=== PATIENT | female | born 1980 | race Caucasian/White ===

== ENCOUNTER → 2016-12-19 | Outpatient (CLI) | payer OTHER | LOC: FIMAGING 14:38 | PROVIDERS: ATTEND Obstetrics & Gynecology | DX: O09.521 Supervision of elderly multigravida, first trimester (principal); N93.9 Abnormal uterine and vaginal bleeding, unspecified; Z3A.12 12 weeks gestation of pregnancy ==

== ENCOUNTER → 2017-01-09 | Outpatient (CLI) | payer OTHER | LOC: FIMAGING 09:47 | PROVIDERS: ATTEND Obstetrics & Gynecology | DX: O09.522 Supervision of elderly multigravida, second trimester (principal); O20.8 Other hemorrhage in early pregnancy; Z3A.15 15 weeks gestation of pregnancy ==

== ENCOUNTER → 2017-02-06 | Outpatient (CLI) | payer OTHER | LOC: FIMAGING 12:34 | PROVIDERS: ATTEND Obstetrics & Gynecology | DX: O36.8920 Maternal care for other specified fetal problems, second trimester, not applicable or unspecified (principal); Z3A.19 19 weeks gestation of pregnancy ==

== ENCOUNTER → 2017-05-02 | Outpatient (CLI) | payer OTHER | LOC: FIMAGING 09:41 | PROVIDERS: ATTEND Obstetrics & Gynecology | DX: O09.523 Supervision of elderly multigravida, third trimester (principal); Z3A.31 31 weeks gestation of pregnancy ==

== ENCOUNTER 2017-06-21 06:00 | Inpatient (IN) | payer OTHER ==
[2017-06-21] MEDS ORDERED: LR 1,000 ML IV PRN (06:22)
[2017-06-21] MEDS ORDERED: TERBUTALINE SULFATE 1 MG/ML VIAL IV PRN (06:22)
[2017-06-21] MEDS ORDERED: EPSOM SALT 454 GM TP PRN (06:22)
[2017-06-21] MEDS ORDERED: OXYTOCIN/RINGERS LACTATE 1,000 ML IV PRN (06:22)
[2017-06-21] MEDS ORDERED: OLIVE OIL 118 ML BTL MISC PRN (06:22)
--- NOTE | 2017-06-21 06:24 | OBPROG ---
OBG Labor Progress Note Assessment/Plan: Assessment: Plan: - Physical Exam General Appearance: WD/WN, alert, no apparent distress Respiratory: chest non-tender, lungs clear, normal breath sounds Cardiac/Chest: regular rate, rhythm Abdomen: normal bowel sounds Extremities: normal range of motion, Eugene's sign (negative bilaterally) DTR- Lower Extremities: Knee (R): 1+, Knee (L): 1+ (no clonus) Skin: normal color, warm/dry Neuro/Psych: no motor/sensory deficits, alert, normal mood/affect, oriented x 3 ICD10 Worksheet Patient Problems: Problems Problem Status Onset Acute Normal spontaneous vaginal delivery Acute
--- NOTE | 2017-06-21 06:26 | OBPROG ---
OBG Labor Progress Note Assessment/Plan: Assessment:cat1 fhr denies pain exam /-2 cephalic soft posterior Plan: discussed poc pitocin per protocol and arom patient and family ok with poc, light breakfast if desires, resting or ambulating changing positions until contractions 06/21/17 06:24 - SVE Dilation (cm): 3 Effacement (%): 50 Station: -2 ICD10 Worksheet Patient Problems: Problems Problem Status Onset Normal spontaneous vaginal delivery Acute Acute
[2017-06-21] MEDS ORDERED: OXYTOCIN/RINGERS LACTATE 500 ML IV SCH (06:30)
[2017-06-21] MEDS ORDERED: LIDOCAINE 1% 300 MG/30 ML SDV ONE (06:35)
[2017-06-21] MEDS ORDERED: AMMONIA AROMATIC 1 EACH AMP IH ONE (06:36)
[2017-06-21] MEDS ORDERED: MISOPROSTOL 200 MCG TAB ONE (06:36)
[2017-06-21] MEDS ORDERED: TERBUTALINE SULFATE 1 MG/ML VIAL ONE (06:36)
[2017-06-21] MEDS ORDERED: OXYTOCIN 10 UNIT/ML VIAL ONE (06:36)
[2017-06-21] MEDS ORDERED: OLIVE OIL 118 ML BTL ONE (06:36)
[2017-06-21 06:37] LABS: % IMMATURE GRANULYOCYTES 0.5 % (0.0-1.1); ABSOLUTE IMMATURE GRANULOCYTES 0.04 10^3/uL (0.00-0.10); ADD DIFF? NO; ADD MORPH? NO; ADD SCAN? NO; ATYPICAL LYMPHOCYTE FLAG 0 (0-99); FRAGMENT RBC FLAG 0 (0-99); HEMATOCRIT 37.4 % (38.0-47.0); HEMOGLOBIN 12.7 g/dL (12.6-16.3); LEFT SHIFT FLG 0 (0-99); LIPEMIA HEMOLYSIS FLAG 90 (0-99); MEAN CELL HEMOGLOBIN 31.5 pg (27.9-34.1); MEAN CELL VOLUME 92.8 fL (81.5-99.8); MEAN PLATELET VOLUME 11.6 fL (8.7-11.7); PLATELET CLUMPS FLAG 0 (0-99); PLATELET COUNT 165 10^3/uL (150-400); RED BLOOD CELL COUNT 4.03 10^6/uL (4.18-5.33); RED CELL DISTRIBUTION WIDTH 13.4 % (11.5-15.2)
--- NOTE | 2017-06-21 09:14 | OBPROG ---
OBG Labor Progress Note Assessment/Plan: Assessment:cat1 fhr denies pain exam 75/-1 cephalic soft mid arom clear fluid tolerated procedure well q3-4 contractions Plan: pitocin per protocol continued expectant management/ requesting epidural for pain relief 06/21/17 06:24 06/21/17 09:12 Objective: 06/21/17 06:05 Patient ABO/Rh A POSITIVE 06/21/17 06:05 - SVE Dilation (cm): 3 Effacement (%): 75 Station: -1 - Procedures Non-surgical Procedures: Amniotomy (clear fluid) Oxytocin Orders Assessment - Pre-Induction/Augmentation Assessment Gestational Age: 39 week(s) and 1 day(s) ICD10 Worksheet Patient Problems: Problems Problem Status Onset Normal spontaneous vaginal delivery Acute Acute
[2017-06-21] MEDS ORDERED: BUPIVACAINE 0.25% 30 ML SDV ONE (09:19)
[2017-06-21] MEDS ORDERED: PHENYLEPHRINE HCL 100 MCG/ML SYR ONE (09:19)
[2017-06-21] MEDS ORDERED: fentaNYL 2MCG/ML/BUP 0.1% RTU 100 ML BAG EP ONE (09:19)
--- NOTE | 2017-06-21 09:51 | GHP ---
[f rep st] HISTORY AND PHYSICAL DATE OF ADMISSION: 06/21/2017 HISTORY OF PRESENT ILLNESS: Patient is a 36-year-old, 3, para 2, with an EDC of 06/27/2017, who comes to Labor and Delivery on 06/21/2017, for an elective induction of labor at 39-1/7 weeks' gestation. Has been receiving care through [facility] [place] [facility] routinely since 8 weeks, with an ea rly 8-week ultrasound that confirmed her EDC of 06/27/2017. MEDICAL HISTORY: Patient has a history of HSV1 generally, subchorionic bleed, history of depression, as well as anemia. GYNECOLOGICAL HISTORY: Abnormal Pap, with LEEP in 09/2005. Negative Pap since. 2 term deliveries since. History of minor yeast infections. History of HSV1 generally began in 2009. Anemia as a te en. History of low vitamin D. Rare UTIs, last one was 10 years ago. SURGERY HISTORY: Perirectal cyst, with intestinal fistula repair in 2009. D and C for IUD removal in 2010. FAMILY HISTORY: Noncontributory. SOCIAL HISTORY: The patient is . Has 2 other kids. Denies drug use. Denies tobacco use. HISTORY: In 01/2012, a male 8 pounds, 8 ounces at 41 weeks, 15 hours of labor, vaginally, with an epidural vacuum delivery, and in 08/2013, a male 7 pounds, 12 ounces, 39 weeks, vaginal del tong, epidural. Positive GBS. Was induced this . No significant difficulties with the p regnancy. PHYSICAL ASSESSMENT: GENERAL APPEARANCE: Patient is awake, alert, oriented x3. LUNGS: Clear bila terally. ABDOMEN: Bowel sounds are positive in all 4 quadrants. EXTREMITIES: DTRs are 1+ bilater ally. Homans sign is negative bilaterally. ABDOMEN: On admission, abdomen was soft on palpation. LABS: Patient is A positive, antibody negative. RPR is nonreactive. Rubella is immune. Hepatitis is negative. HIV is negative. Trio screen in 2012 was negative. Vitamin D was 43.6. Urine cultu re was negative. Pap and HPV were negative. Gonorrhea and chlamydia were negative. AFP was negati ve. Verifi was negative. 1-hour GTT was within normal limits. Patient is GBS negative. PLAN OF CARE: 1. Admit. 2. GBS negative. 3. Pitocin per protocol. AROM when able, and expectant management of labor with epidural for pain relief at patient request. /[id number]/MODL
[2017-06-21] MEDS ORDERED: ONDANSETRON 4 MG/2 ML VIAL IVP PRN (10:29)
[2017-06-21] MEDS ORDERED: NALOXONE HCL 0.4 MG/ML INJ IVP PRN (10:29)
[2017-06-21] MEDS ORDERED: PHENYLEPHRINE HCL 100 MCG/ML SYR IVP PRN (10:29)
--- NOTE | 2017-06-21 10:29 | PREANESOB ---
Obstetric Pre-Anesthesia Info - General Info Proposed Procedure: Labor Epidural for augmented labor pain control NPO Start Time: 08:00 : 3 Para: 2 - Info Status: Full Term, Alvarez Monitors: External FHR Baseline (bpm): 140 FHR Pattern: Reassuring - Labor Status Cervical Dilation per last OB SVE: 3 Station per last OB SVE: -1 Pitocin: In Use PIH: No Magnesium Sulfate in Use: No Indications for Labor Analgesia: Augmentation of Labor, Pain Control Labor Epidural: Yes Anesthesia Allergies/Adverse Reactions: Allergy/AdvReac Type Severity Reaction Status Date / Time morphine Allergy DOESN'T Verified 09/12/13 08:01 WORK Sulfa (Sulfonamide Allergy HALLUCINATI Verified 09/20/10 14:19 Antibiotics) ONS Home Medications: Medication Instructions Recorded [place] 3 1,000 mg Softgel 09/12/13 1 tab PO 09/12/13 ValTREX 500MG 500 mg PO DAILY 09/12/13 Visit Medications: Generic Name Dose Route Start Last Admin Trade Name Freq PRN Reason Stop Dose Admin Lactated Ringer's 1,000 mls @ 0 mls/hr 06/21/17 06:22 Lr IV 12/18/17 06:21 PRN PRN SEE PROTOCOL CONDITIONS Protocol Per Protocol Oxytocin/Lactated Ringer's 1,000 mls @ 150 mls/hr 06/21/17 06:22 Pitocin 20 Units/Lr (Premix) IV PRN PRN Post- bleeding Oxytocin/Lactated Ringer's 500 mls @ 0 mls/hr 06/21/17 06:30 Pitocin 30 Units/Lr (Premix) IV 12/18/17 06:29 CONT HONEY Protocol Per Protocol Ibuprofen 600 mg 06/21/17 06:22 Motrin PO 12/18/17 06:21 Q6HRS PRN post , inflammation Magnesium Sulfate 454 gm 06/21/17 06:22 Epsom Salt TP 12/18/17 06:21 Q1H PRN perineal discomfort [place] Oil 118 ml 06/21/17 06:22 Sweet Oil MISC 12/18/17 06:21 ONCE PRN preneal massage Terbutaline Sulfate 0.25 mg 06/21/17 06:22 Brethine IV 12/18/17 06:21 ONCE PRN Tachysystole Discontinued Medications Generic Name Dose Route Start Last Admin Trade Name Freq PRN Reason Stop Dose Admin Ammonia (Aromatic Spirit) Confirm 06/21/17 06:36 Ammonia Aromatic Administered 06/21/17 06:37 Dose 1 each IH .STK-MED ONE Bupivacaine HCl Confirm 06/21/17 09:19 Sensorcaine 0.25% Sdv Administered 06/21/17 09:20 Dose 30 ml .ROUTE .STK-MED ONE Ephedrine Sulfate Confirm 06/21/17 06:36 Ephedrine Sulfate Administered 06/21/17 06:37 Dose 50 mg .ROUTE .STK-MED ONE Fentanyl/Bupivacaine HCl Confirm 06/21/17 09:19 Fentanyl/Bupivacaine/Ns 2 Mcg/Ml 0.1% (Premix Administered 06/21/17 09:20 Dose 100 ml EP .STK-MED ONE Lidocaine HCl Confirm 06/21/17 06:35 Lidocaine Hcl 1% Administered 06/21/17 06:36 Dose 300 mg .ROUTE .STK-MED ONE Misoprostol Confirm 06/21/17 06:36 Cytotec Administered 06/21/17 06:37 Dose 1,000 mcg .ROUTE .STK-MED ONE Humboldt Oil Confirm 06/21/17 06:36 Sweet Oil Administered 06/21/17 06:37 Dose 118 ml .ROUTE .STK-MED ONE Oxytocin Confirm 06/21/17 06:36 Pitocin Administered 06/21/17 06:37 Dose 40 unit .ROUTE .STK-MED ONE Phenylephrine HCl Confirm 06/21/17 09:19 Neosynephrine Administered 06/21/17 09:20 Dose 1,000 mcg .ROUTE .STK-MED ONE Terbutaline Sulfate Confirm 06/21/17 06:36 Brethine Administered 06/21/17 06:37 Dose 1 mg .ROUTE .STK-MED ONE - Anesthesia History Response to Local Anesthetics: Normal Anesthesia & Operative History: No Prior Problems Family Anesthesia History: Negative - Social History Substance Use/Abuse: Denies - Focused Exam Latest Vital Signs (Nursing): See Nursing notes Height/Weight (Nursing): Height 180.34 cm Weight 97.522 kg Airway: Mallapati 2; Oral opening 4-5cm, TM distance > 3cm; dentition normal, intac Respiratory: lungs clear. No: rales, rhonchi, wheezing Cardiovascular: normal peripheral pulses, regular rate, rhythm. No: systolic murmur, friction rub ASA Status: II Labs: 06/21/17 06:05 Patient ABO/Rh A POSITIVE 06/21/17 06:05 - Plan Consent Signed and on Chart: Yes Patient/Guardian Understands and Agrees to Plan: Yes
[2017-06-21] MEDS ORDERED: LR 500 ML IV SCH (10:30)
[2017-06-21] MEDS ORDERED: fentaNYL 2MCG/ML/BUP 0.1% RTU 100 ML EP SCH (10:30)
--- NOTE | 2017-06-21 11:09 | OBPROG ---
OBG Labor Progress Note Assessment/Plan: Assessment:cat1 fhr denies pain epidural placed with great pain relief per patient exam /-1 cephalic soft mid/ no change to cervix arom clear fluid tolerated procedure well q3-4 contractions pitocin at 12mu Plan: pitocin per protocol continued expectant management/ requesting epidural for pain relief 06/21/17 06:24 06/21/17 09:12 06/21/17 11:07 06/21/17 11:08 Subjective: Feeling better after peidural placement denies pain Objective: 06/21/17 06:05 Patient ABO/Rh A POSITIVE 06/21/17 06:05 - SVE Dilation (cm): 3 Effacement (%): 75 Station: -1 - Procedures Non-surgical Procedures: Amniotomy (clear fluid) Oxytocin Orders Assessment - Pre-Induction/Augmentation Assessment Gestational Age: 39 week(s) and 1 day(s) ICD10 Worksheet Patient Problems: Problems Problem Status Onset Normal spontaneous vaginal delivery Acute Acute
--- NOTE | 2017-06-21 13:48 | OBPROG ---
OBG Labor Progress Note Assessment/Plan: Assessment:cat1 fhr denies pain epidural placed with great pain relief per patient exam 5/75/0 cephalic soft anterior continued clear fluid + bloody show q3-4 contractions pitocin at 16mu Plan: pitocin per protocol continued expectant management/ requesting epidural for pain relief/ care to be taken over by Dr. Obdulia guerrier report given 06/21/17 06:24 06/21/17 09:12 06/21/17 11:07 06/21/17 11:08 06/21/17 13:46 06/21/17 13:47 Subjective: Doing well. Comfortable with epidural denies pain. Objective: 06/21/17 06:05 Patient ABO/Rh A POSITIVE 06/21/17 06:05 - SVE Dilation (cm): 5 Effacement (%): 75 Station: 0 Oxytocin Orders Assessment - Pre-Induction/Augmentation Assessment Gestational Age: 39 week(s) and 1 day(s) ICD10 Worksheet Patient Problems: Problems Problem Status Onset Normal spontaneous vaginal delivery Acute Acute
[2017-06-21] MEDS ORDERED: DOCUSATE SODIUM 100 MG CAP PO PRN (16:17)
[2017-06-21] MEDS ORDERED: ACETAMINOPHEN 325 MG TAB PO PRN (16:17)
[2017-06-21] MEDS ORDERED: HYDROCORTISONE 0.5% CREAM TP PRN (16:17)
[2017-06-21] MEDS ORDERED: HYDROCODONE/APAP 5/325 TAB PO PRN (16:17)
[2017-06-21] MEDS ORDERED: SIMETHICONE 80 MG TAB CHEW PO PRN (16:17)
--- NOTE | 2017-06-21 16:21 | OBDEL ---
Info Type: Vaginal GBS+: No Indications for Delivery: Elective (iol @ 39 weeks) Vaginal Delivery - Labor and Delivery Onset of Contractions Date: 06/21/17 Onset of Contractions Time: 13:40 Onset of Contractions Type: Induced Rupture of Membranes Date: 06/21/17 Rupture of Membranes Time: 09:06 Rupture of Membranes Type: Artificial Amniotic Fluid Color: Clear Dilation Complete Date: 06/21/17 Dilation Complete Time: 15:43 Placenta Delivery Date: 06/21/17 Placenta Delivery Time: 15:57 Total Hours of Labor: 2 Non-surgical Procedures: Amniotomy (clear fluid) Laceration: 1st Degree Repair: 3-0, Vicryl Vaginal Sponge Count Correct: Yes Vaginal Needle Count Correct: Yes Vaginal Sweep Performed: Yes EBL: 250 Delivery Events: Nuchal Cord (loose x 1) - Medications Labor Augmentation/Induction Methods Used: Pitocin Labor Augmentation/Induction Indication: Elective Data Alvarez Delivery Date: 06/21/17 Delivery Time: 15:50 KURTIS: 06/27/17 Gestational Age: 39 week(s) and 1 day(s) Sex of Infant: Female Score (1 Min): 8 Score (5 Min): 9 ICD10 Worksheet Patient Problems: Problems Problem Status Onset Normal spontaneous vaginal delivery Acute Acute
[2017-06-21] MEDS: IBUPROFEN 600 MG TAB PO PRN ×2 (16:36→22:36)
--- NOTE | 2017-06-21 18:05 | POSTANESTH ---
Post Anesthetic Evaluation Cardiovascular Status: Normal, Stable Respiratory Status: Normal, Stable Level of Consciousness/Mental Status: Can Participate in Eval Pain Control: Adequate, Prn Tx Ordered Nausea/Vomiting Control: Adequate, Prn Tx Ordered Complications Possibly Related to Anesthesia: None Noted (Patient successfully labored with epidural in place. Excellent pain control.)
[2017-06-21 18:24] VITALS: O2SAT 95
[2017-06-22] MEDS: IBUPROFEN 600 MG TAB PO PRN ×2 (04:30→10:51)
[2017-06-22 08:55] VITALS: BP 112/72; PULSE 75; RESP 18; TEMP 97.8
--- NOTE | 2017-06-22 11:12 | OBPP ---
Progress Note Assessment/Plan: Assessment: 1) s/p PPD # 1- pt is stable 2) Anemia - pt is asymptomatic Plan: Continue routine pp care Pt would like to go home later today Plan for d/c home if baby is discharged Instructions reviewed with pt Rx given for Motrin and [place] Cont PNV, iron and colace Pelvic rest RTO in 4 and 6 weeks for pp visit 06/22/17 11:09 Subjective: Pt seen and examined. Doing well with no complaints. Mild cramping. Moderate lochia. Rosana regular diet, voiding without difficulty, passing flatus. No BM. BF without difficulty. Would like to go home later today. Objective: 06/21/17 06:05 Patient ABO/Rh A POSITIVE 06/21/17 06:05 Temp Pulse Resp BP Pulse Ox 36.6 C 75 18 112/72 95 06/22/17 08:00 06/22/17 08:00 06/22/17 08:00 06/22/17 08:00 06/21/17 20:00 Uterine Position/Fundal Height: Umbilicus -2 Uterine Tone: Firm Physical Exam - Physical Exam General Appearance: WD/WN, alert, no apparent distress Respiratory: lungs clear, normal breath sounds Cardiac/Chest: regular rate, rhythm Abdomen: normal bowel sounds, non-tender, soft, flatus (+) Extremities: non-tender, normal inspection Skin: normal color, warm/dry Neuro/Psych: alert, normal mood/affect, oriented x 3
--- NOTE | 2017-06-22 11:15 | OBGCSDC ---
General Delivery Information - General Info : 3 Para: 3 Delivery Physician/CNM: Obdulia Rodriguez Admission Date: 06/21/17 Labs: Patient ABO/Rh A POSITIVE 06/21/17 06:05 Hct 37.4 % (38.0-47.0) L 06/21/17 06:05 Vaginal - Diagnosis Labor: Induced Rupture of Membranes Type: Artificial Amniotic Fluid Color: Clear Laceration: 1st Degree Repair: 3-0, Vicryl Delivery Events: Nuchal Cord (loose x 1) - Operations/Procedures Non-surgical Procedures: Amniotomy (clear fluid) L&D Analgesia/Anesthesia Type: Epidural - Hospital Course Antepartum: AMA with negative genetic testing. Intrapartum: Elective IOL. Pitocin and AROM. Uncomplicated . EBL 300 cc. 1st degree lac : Uncomplicated. Mild cramping. Mod lochia. Voiding without difficulty. Passing flatus. No BM. BF well. - Delivery Non-surgical Procedures: Amniotomy (clear fluid) L&D Analgesia/Anesthesia Type: Epidural Data Alvarez Delivery Date: 06/21/17 Delivery Time: 15:50 KURTIS: 06/27/17 Gestational Age: 39 week(s) and 2 day(s) Sex of Infant: Female Weight (gm): 3520 g Score (1 Min): 8 Score (5 Min): 9 Discharge Information - Discharge Information Discharge Medications: Iron, Ibuprofen, Vitamins Condition: Good Instruction/Follow Up: Four Weeks, Six Weeks Discharge Physician/CNM: Gabriela Devries
== END 2017-06-22 16:35 | disposition home or self-care (01) | DRG 774 ==
LOC: FLD 06:02 → FOB 18:48
PROVIDERS: ADMIT Advanced Practice Midwife; ATTEND Obstetrics & Gynecology
DX: O70.0 First degree perineal laceration during delivery (principal); O69.81X0 Labor and delivery complicated by cord around neck, without compression, not applicable or unspecified; O98.32 Other infections with a predominantly sexual mode of transmission complicating childbirth; A60.09 Herpesviral infection of other urogenital tract; Z3A.39 39 weeks gestation of pregnancy; Z37.0 Single live birth
CPT/HCPCS: J2370; J2590; J3105